=== PATIENT | male | born 1965 | race Caucasian/White ===

== ENCOUNTER 2016-02-22 08:53 | Emergency (ER) | payer MEDICAID ==
[~2016-02-22] VITALS: Ht 167.6 cm; Wt 75.5 kg
[2016-02-22 08:55] VITALS: Ht 167.6 cm; Wt 75.5 kg
[2016-02-22] MEDS ORDERED: ONDANSETRON (ODT) 4 MG TAB ODT STA (09:27)
[2016-02-22] MEDS ORDERED: HYDROCODONE/APAP (5/325) TAB PO ONE (09:30)
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
--- NOTE | 2016-02-22 10:46 | RADRPT ---
PROCEDURE: XR Cervical Spine. CLINICAL INDICATION: Neck pain TECHNIQUE: Three views of the cervical spine were performed. COMPARISON: None. FINDINGS: The cervical vertebral bodies are normal in mineralization, architecture and alignment. No fracture or osseous lesion is identified. There is 2 mm of C5-C6 retrolisthesis. The disk spaces are unrema rkable. The uncinate joints are unremarkable. The facet joints are unremarkable. No soft tissue a bnormality is identified. IMPRESSION: 2 mm C5 on C6 retrolisthesis Otherwise unremarkable cervical spine. RPTAT: HGDB .Chaz Pa MD, Date Time Electronically viewed and signed by .Chaz Pa MD, on 02/22/2016 10:45 .B/
[2016-02-22] MEDS ORDERED: CYCL-319 PO (10:55)
[2016-02-22] MEDS ORDERED: HYDR-906 PO (10:56)
[2016-02-22] MEDS ORDERED: NAPR-260 PO (10:56)
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
== END 2016-02-22 11:07 | disposition home or self-care (01) ==
LOC: FTE 08:53
DX: S09.90XA Unspecified injury of head, initial encounter (principal); R42 Dizziness and giddiness; V49.50XA Passenger injured in collision with unspecified motor vehicles in traffic accident, initial encounter
CPT/HCPCS: 70450; 72050; Z7502; Z7610